=== PATIENT | female | born 1990 | race Caucasian/White ===

== ENCOUNTER 2018-04-04 14:28 | Observation (INO) | payer OTHER ==
[~2018-04-04] VITALS: Ht 78 cm; Wt 81.2 kg
[2018-04-04] MEDS ORDERED: PREN1TAB80 PO (15:03)
[2018-04-04] MEDS ORDERED: FOLI0.4T4 PO (15:03)
[2018-04-04] MEDS ORDERED: FERR-89 PO (15:04)
[2018-04-04 15:05] VITALS: BP 118/67
== END 2018-04-04 16:00 | disposition home or self-care (01) ==
LOC: 4S 14:28
PROVIDERS: ADMIT Obstetrics & Gynecology; ATTEND Obstetrics & Gynecology
DX: O62.9 Abnormality of forces of labor, unspecified (principal); Z3A.39 39 weeks gestation of pregnancy
CPT/HCPCS: 81002; G0378

== ENCOUNTER 2018-04-05 17:12 | Inpatient (IN) | payer OTHER ==
[~2018-04-05] VITALS: Ht 162.6 cm; Wt 80.3 kg
[~2018-04-05 17:12] MED LIST: FERR-89 PO; FOLI0.4T4 PO; PREN1TAB80 PO
[2018-04-05] MEDS ORDERED: RINGERS SOLUTION,LACTATED 1,000 ML IV SCH (17:31)
[2018-04-05] MEDS ORDERED: RINGERS SOLUTION,LACTATED 1,000 ML IV PRN ×2 (17:31)
[2018-04-05] MEDS ORDERED: OXYTOCIN 30 UNITS/LACT RINGERS 500 ML IV ONE (17:31)
[2018-04-05 17:41] VITALS: BP 138/84
[2018-04-05] MEDS ORDERED: FentaNYL CITRATE-PF 100 MCG/2 ML VIAL IVP PRN (17:45)
[2018-04-05] MEDS ORDERED: LIDOCAINE/PF 1% 30 ML VIAL INJ PRN (17:45)
[2018-04-05] MEDS ORDERED: METOCLOPRAMIDE HCL 5 MG/ML 2 ML VIAL IVP PRN ×2 (17:45)
[2018-04-05] MEDS ORDERED: CITRIC ACID/SODIUM CITRATE 30 ML SOLUTION UDCUP PO PRN ×2 (17:45)
[2018-04-05 18:03] LABS: BASOPHILS % (AUTO) 0.3 % (0.0-2.0); EOSINOPHILS % (AUTO) 0.2 % (1.0-6.0); HEMATOCRIT 29.5 % (36-46); HEMOGLOBIN 9.6 g/dL (12.0-16.0); LYMPHOCYTES # (AUTO) 1.1 K/uL (1.0-4.8); LYMPHOCYTES % (AUTO) 11.2 % (22.0-44.0); MEAN CORPUSCULAR HEMOGLOBIN 23.5 pg (26.0-34.0); MEAN CORPUSCULAR HGB CONC 32.6 G/dL (31.0-37.0); MEAN CORPUSCULAR VOLUME 72 fL (80-100); MONOCYTES # (AUTO) 0.4 K/uL (0.1-1.0); MONOCYTES % (AUTO) 3.6 % (2.0-9.0); NEUTROPHILS # (AUTO) 8.4 K/uL (1.8-7.7); NEUTROPHILS % (AUTO) 84.7 % (40.0-70.0); PLATELET COUNT (AUTO)-OB 237 K/uL (150-450)
[2018-04-05] MEDS: RINGERS SOLUTION,LACTATED 1,000 ML IV SCH ×2 (18:57→20:41)
[2018-04-05] MEDS ORDERED: ROPIVACAINE HCL/PF 0.2% 100 ML ED ONE (19:14)
[2018-04-05] MEDS ORDERED: ROPIVACAINE HCL/PF 0.2% 100 ML ED PRN (20:00)
[2018-04-05] MEDS ORDERED: DiphenhydrAMINE HCL 50 MG/ML VIAL IVP PRN (20:00)
[2018-04-05] MEDS ORDERED: OXYGEN THERAPY IH SCH ×2 (20:00)
[2018-04-05] MEDS ORDERED: ONDANSETRON HCL 4 MG/2 ML VIAL IVP PRN (20:00)
[2018-04-06] MEDS ORDERED: RINGERS SOLUTION,LACTATED 1,000 ML IV ONE (01:21)
[2018-04-06] MEDS ORDERED: BENZOCAINE 20%/MENTHOL 56 GM SPRAY CANISTER TP PRN (01:30)
[2018-04-06] MEDS ORDERED: OxyCODONE HCL/ACETAMINOPHEN 5-325 MG TABLET PO PRN ×2 (01:30)
[2018-04-06] MEDS ORDERED: GLYCERIN/WITCH HAZEL LEAF 40 PADS JAR TP PRN (01:30)
[2018-04-06] MEDS ORDERED: LANOLIN 7 GM OINTMENT TP PRN (01:30)
[2018-04-06] MEDS ORDERED: MEASLES/MUMPS/RUBELLA VACCINE, LIVE 0.5 ML/VIAL SQ ONE (01:30)
[2018-04-06] MEDS: IBUPROFEN 600 MG TABLET PO PRN ×2 (02:14→21:05)
[2018-04-06] MEDS: MAGNESIUM HYDROXIDE SUSPENSION 30 ML UDCUP PO SCH ×2 (09:03→21:04)
[2018-04-07] MEDS ORDERED: IBUP-2071 PO (09:38)
[2018-04-07] MEDS ORDERED: DSS100 PO (09:40)
== END 2018-04-07 10:25 | disposition home or self-care (01) | DRG 806 ==
LOC: OBSVTOIN 17:12 → 4S 17:12 → UNDOADMOB 17:12 → INTOOBSV 17:12
PROVIDERS: ADMIT Obstetrics & Gynecology; ATTEND Obstetrics & Gynecology
PROC: 10E0XZZ Delivery of Products of Conception, External Approach (ICD-10-PCS; principal; 2018-04-06)
PROC: 0UQMXZZ Repair Vulva, External Approach (ICD-10-PCS; 2018-04-06)
PROC: 3E0R3BZ Introduction of Anesthetic Agent into Spinal Canal, Percutaneous Approach (ICD-10-PCS; 2018-04-06)
PROC: 00HU33Z Insertion of Infusion Device into Spinal Canal, Percutaneous Approach (ICD-10-PCS; 2018-04-06)
DX: O69.81X0 Labor and delivery complicated by cord around neck, without compression, not applicable or unspecified (principal); O71.5 Other obstetric injury to pelvic organs; Z37.0 Single live birth; Z3A.40 40 weeks gestation of pregnancy
CPT/HCPCS: J2590; J2795; J7120